=== PATIENT | female | born 1970 | race Hispanic/Latino ===

== ENCOUNTER 2016-08-29 23:22 | Emergency (ER) | payer OTHER, MEDICAID ==
[2016-08-29 23:30] VITALS: BP 109/72; PULSE 70; RESP 20; TEMP 98; O2SAT 96
[2016-08-30] MEDS ORDERED: Aluminum Hydroxide/Magnesium Hydroxide Susp (30 mL) PO STA (00:28)
[2016-08-30] MEDS ORDERED: Aluminum Hydroxide/Magnesium Hydroxide Susp (30 mL) ONE (00:31)
--- NOTE | 2016-08-30 00:46 | C.PDOC ---
History Of Present Illness 46 year old morbidly obese female who presents to the ER with a complaint of knee pain for "long time". Patient saw orthopedist who recommended her to use an shiva wrap; however, she reports her knee now feels like it is giving out on her which prompted the visit. Patient states she takes occasional ibuprofen at home; denies recent injury or trauma. Time Seen by Provider: 08/30/16 00:07 Chief Complaint (Nursing): Lower Extremity Problem/Injury History Per: Patient History/Exam Limitations: no limitations Onset/Duration Of Symptoms: Days Current Symptoms Are (Timing): Still Present Recent travel outside of the [place]: No Past Medical History Reviewed: Historical Data, Nursing Documentation, Vital Signs Vital Signs: Last Vital Signs Temp 98 F 08/29/16 23:25 Pulse 70 08/29/16 23:25 Resp 20 08/29/16 23:25 BP 109/72 08/29/16 23:25 Pulse Ox 96 08/30/16 01:04 - Medical History PMH: Anxiety, Hiatal Hernia, HTN Surgical History: Cholecystectomy Family History: States: Unknown Family Hx - Social History Hx Alcohol Use: No Hx Substance Use: No - Immunization History Hx Influenza Vaccination: Yes Review Of Systems Constitutional: Negative for: Fever, Chills Musculoskeletal: Positive for: Leg Pain Physical Exam - Physical Exam Appears: Non-toxic (morbidly obese) Skin: Normal Color, Warm, Dry Head: Atraumatic, Normacephalic Oral Mucosa: Moist Extremity: Normal ROM, No Tenderness, No Calf Tenderness, Capillary Refill (Good ), No Deformity, No Swelling Pulses: Left Dorsalis Pedis: Normal, Right Dorsalis Pedis: Normal Neurological/Psych: Oriented x3, Normal Speech, Normal Cognition ED Course And Treatment O2 Sat by Pulse Oximetry: 96 (Room air) Pulse Ox Interpretation: Normal Progress Note: Maalox and motrin administered. Shiva wrap applied by CP checked by me. Disposition Counseled Patient/Family Regarding: Diagnosis, Need For Followup - Disposition Referrals: Lester Rogel III, MD [Staff Provider] - Disposition: HOME/ ROUTINE Disposition Time: 00:43 Condition: GOOD Additional Instructions: Follow up with orthopedist. Take ibuprofen for pain. Cold compress to knee several times a day. Shiva bandage for support. Prescriptions: Ibuprofen [Motrin] 600 mg PO TID #30 tab Instructions: Knee Pain (ED) Forms: General Discharge Instructions - Clinical Impression Clinical Impression: Knee pain, left - Scribe Statement The provider has reviewed the documentation as recorded by the Scribzaki Mckinnon All medical record entries made by the Jocelinibe were at my direction and personally dictated by me. I have reviewed the chart and agree that the record accurately reflects my personal performance of the history, physical exam, medical decision making, and the department course for this patient. I have also personally directed, reviewed, and agree with the discharge instructions and disposition.
== END 2016-08-30 00:50 | disposition home or self-care (01) ==
LOC: C.ER 23:22
DX: M25.562 Pain in left knee (principal)

== ENCOUNTER 2017-02-12 20:34 | Emergency (ER) | payer MEDICAID, OTHER ==
[2017-02-12 20:46] VITALS: RESP 20
[2017-02-12 21:42] LABS: BASO # 0.1 K/uL (0.0-0.2); BASO % 0.9 % (0.0-2.0); EOS # 0.3 K/uL (0.0-0.7); HEMOGLOBIN 12.7 g/dL (11.0-16.0); LYMPH # 2.9 K/uL (1.0-4.3); LYMPH % 24.6 % (20.0-40.0); MEAN CELL VOLUME 79.9 fL (81.0-99.0); MEAN CORPUSCULAR HEMOGLOBIN 25.9 pg (27.0-31.0); MEAN CORPUSCULAR HGB CONC 32.4 g/dL (33.0-37.0); MEAN PLATELET VOLUME 8.2 fL (7.2-11.7); MONO # 0.9 K/uL (0.0-0.8); MONO % 7.8 % (0.0-10.0); NEUT # 7.4 K/uL (1.8-7.0); NEUT % 63.7 % (50.0-75.0); RBC 4.93 Mil/uL (3.80-5.20); RED CELL DISTRIBUTION WIDTH 15.2 % (11.5-14.5); WHITE BLOOD COUNT 11.6 K/uL (4.8-10.8)
[2017-02-12 21:54] LABS: ALBUMIN 3.7 g/dL (3.5-5.0); ALT/SGPT 29 U/L (9-52); AST/SGOT 16 U/L (14-36); BLOOD UREA NITROGEN 15 mg/dL (7-17); CALCIUM 8.2 mg/dl (8.6-10.4); GFR AFRICAN-AMERICAN > 60; GFR NON-AFRICAN AMERICAN > 60
[2017-02-12 22:05] LABS: HCG,QUALITATIVE URINE NEGATIVE (NEGATIVE)
[2017-02-12 22:12] LABS: SQUAMOUS EPITHIAL 5 /hpf (0-5); URINE BACTERIA RARE (<OCC); URINE BILIRUBIN NEGATIVE (NEGATIVE); URINE BLOOD NEGATIVE (NEGATIVE); URINE CLARITY Clear (Clear); URINE COLOR Yellow (YELLOW); URINE GLUCOSE (UA) NORMAL (Normal); URINE LEUKOCYTE ESTERASE NEG Leu/uL (Negative); URINE NITRATE NEGATIVE (NEGATIVE); URINE PROTEIN NEGATIVE (NEGATIVE); URINE UROBILINOGEN NORMAL mg/dL (0.2-1.0)
[2017-02-12 23:20] VITALS: BP 140/82; PULSE 78; TEMP 98; O2SAT 97
--- NOTE | 2017-02-12 23:25 | C.PDOC ---
History Of Present Illness 46 year old female presents to the ER with a complaint of serve skeletal muscle pain between the shoulder blades that has now wrapped around her left arm and breast area, associated with numbness to her left arm causing SOB. Denies nausea , vomiting, or recent injury. Patient has a Hx of HTN, but no surgical Hx or known allergens, She smokes half a back of cigarettes for the past 1 year. Time Seen by Provider: 02/12/17 21:01 Chief Complaint (Nursing): Chest Pain History Per: Patient History/Exam Limitations: no limitations Onset/Duration Of Symptoms: Hrs Current Symptoms Are (Timing): Still Present Associated Symptoms: Dyspnea. denies: Nausea, Diaphoresis, Syncope Modifying Factors: None Exacerbating Factors: None Alleviating Factors: None Recent travel outside of the [place]: No Past Medical History Reviewed: Historical Data, Nursing Documentation, Vital Signs Vital Signs: Last Vital Signs Temp 98 F 02/12/17 23:18 Pulse 78 02/12/17 23:18 Resp 20 02/12/17 23:18 BP 140/82 02/12/17 23:18 Pulse Ox 97 02/12/17 23:47 - Medical History PMH: Anxiety, Hiatal Hernia, HTN Surgical History: Cholecystectomy Family History: States: Unknown Family Hx - Social History Hx Alcohol Use: No Hx Substance Use: No - Immunization History Hx Influenza Vaccination: Yes Review Of Systems Constitutional: Negative for: Fever, Chills Respiratory: Positive for: Shortness of Breath Gastrointestinal: Negative for: Nausea, Vomiting Musculoskeletal: Positive for: Arm Pain, Back Pain, Other (Chest wall pain) Neurological: Positive for: Numbness Physical Exam - Physical Exam Appears: Non-toxic, Other (Morbidly obese) Skin: Normal Color, Warm, Dry Head: Atraumatic, Normacephalic Eye(s): bilateral: Normal Inspection Oral Mucosa: Moist Lips: Normal Appearing Teeth: Normal Dentition Gingiva: Normal Appearing Neck: Normal, Supple Chest: Symmetrical, No Tenderness Cardiovascular: Rhythm Regular Respiratory: Normal Breath Sounds, No Rales, No Rhonchi, No Wheezing Gastrointestinal/Abdominal: Soft, No Tenderness Back: Other (Trigger point tenderness to left trapezius, left rhomboid, and left latissimus dorsi.) Extremity: Normal ROM (x4) Neurological/Psych: Oriented x3, Normal Speech, Normal Motor, Normal Sensation ED Course And Treatment - Laboratory Results Result Diagrams: 02/12/17 21:38 02/12/17 21:38 O2 Sat by Pulse Oximetry: 97 (Room air) Pulse Ox Interpretation: Normal - Radiology CXR: Interpreted by Me, Viewed By Me CXR Interpretation: Yes: No Acute Disease. No: Infiltrates, Cardiomegaly, Pnemothorax, Other (Effusions) Medical Decision Making Medical Decision Making: Plan: * EKG * CMP * Trop I * CBC * CXR * Toradol * UA Trigger point release performed. On reevaluation, patient reports improvement of pain, CXR and lab results are normal, will discharge home. Disposition - Disposition Referrals: [facility] [place] [facility] [place] [facility] [Outside] [facility] at [place] [Outside] Disposition: HOME/ ROUTINE Disposition Time: 06:39 Condition: GOOD Additional Instructions: return if symtpoms return or worsen Prescriptions: Naproxen [Naprosyn] 500 mg PO BID 10 Days #20 tablet Forms: General Discharge Instructions, [facility] (Haitian) - Clinical Impression Clinical Impression: Muscle spasm, Back pain - Scribe Statement The provider has reviewed the documentation as recorded by the Scribe Kalyan Mckinnon All medical record entries made by the Scribe were at my direction and personally dictated by me. I have reviewed the chart and agree that the record accurately reflects my personal performance of the history, physical exam, medical decision making, and the department course for this patient. I have also personally directed, reviewed, and agree with the discharge instructions and disposition.
--- NOTE | 2017-02-13 08:28 | RAD ---
HISTORY: chest pain COMPARISON: None available. TECHNIQUE: Chest PA and lateral FINDINGS: Examination limited by habitus. LUNGS: No focal consolidation. Please note that chest x-ray has limited sensitivity for the detection of pulmonary masses. PLEURA: No significant pleural effusion identified. No definite pneumothorax . CARDIOVASCULAR: The cardiomediastinal silhouette appears within normal limits of size. OSSEOUS STRUCTURES: No acute osseous abnormality identified. VISUALIZED UPPER ABDOMEN: Unremarkable. OTHER FINDINGS: None. IMPRESSION: No focal consolidation, significant pleural effusion, or definite pneumothorax identified.
--- NOTE | 2017-02-13 23:28 | CARD ---
APPROVED REPORT EKG Measurement Heart [id number] <Conclusion> Normal sinus rhythm Normal ECG
== END 2017-02-12 23:20 | disposition home or self-care (01) ==
LOC: C.ER 20:34
DX: M62.838 Other muscle spasm (principal); M54.9 Dorsalgia, unspecified
CPT/HCPCS: 71046; 80053; 81001; 84484; 84703; 85025; 93005; 96374; 99284; J1885